=== PATIENT | female | born 1995 | race Caucasian/White ===

== ENCOUNTER → 2018-03-15 | Outpatient (CLI) | payer OTHER ==
[2018-03-15 11:29] LABS: BASO % 0.2 % (0.0-1.0); EOS % 0.4 % (0.0-3.0); HEMATOCRIT 38.2 % (36.0-47.0); HEMOGLOBIN 13.2 g/dl (12.0-15.5); IMMATURE GRANULOCYTE % 0.4 % (0-3.0); LYMPH # 3.1 10^3/uL (1.5-6.5); LYMPH % 27.1 % (24.0-44.0); MEAN CORPUSCULAR HEMOGLOBIN 30.2 pg (27.0-33.0); MEAN CORPUSCULAR HGB CONC 34.6 g/dl (32.0-36.5); MEAN CORPUSCULAR VOLUME 87.4 fl (80.0-96.0); MONO # 0.7 10^3/uL (0.0-0.8); MONO % 6.3 % (0.0-5.0); NEUTROPHILS # 7.5 10^3/uL (1.8-7.7); NEUTROPHILS % 65.6 % (36.0-66.0); PLATELET COUNT, AUTOMATED 282 10^3/uL (150-450); RED BLOOD COUNT 4.37 10^6/uL (4.00-5.40); RED CELL DISTRIBUTION WIDTH 13.2 % (11.5-14.5); WHITE BLOOD COUNT 11.4 10^3/uL (4.0-10.0)
[2018-03-15 12:10] LABS: ANION GAP 8 MEQ/L (8-16); BLOOD UREA NITROGEN 13 MG/DL (7-18); CALCIUM LEVEL 8.8 MG/DL (8.5-10.1); CARBON DIOXIDE LEVEL 26 MEQ/L (21-32); CHLORIDE LEVEL 106 MEQ/L (98-107); CREATININE FOR GFR 0.68 MG/DL (0.55-1.30); GLOMERULAR FILTRATION RATE > 60.0 (>60); GLUCOSE, FASTING 75 MG/DL (70-100); POTASSIUM SERUM 4.1 MEQ/L (3.5-5.1); SODIUM LEVEL 140 MEQ/L (136-145)
== END ==
LOC: M LRY 09:37
DX: R53.83 Other fatigue (principal); M54.2 Cervicalgia
CPT/HCPCS: 84443

== ENCOUNTER → 2018-03-28 | Outpatient (CLI) | payer OTHER ==
--- NOTE | 2018-03-28 12:47 | REP ---
Clinical: Lower back pain. Technique: AP, lateral, coned-down views of the lumbosacral spine. Findings: Alignment and lordosis maintained. Vertebral bodies and disc spaces are normal. Impression: Normal lumbosacral spine series. Electronically Signed by Floyd Coronado MD 03/28/2018 12:38 P
== END ==
LOC: M LRY 11:51
PROVIDERS: ATTEND Physician Assistant
DX: M54.5 Low back pain (principal)

== ENCOUNTER → 2018-07-14 | Outpatient (REF) | payer OTHER ==
[2018-07-14 20:54] LABS: CHLAMYDIA DNA AMPLIFICATION NEGATIVE (NEGATIVE); GC DNA AMPLIFICATION NEGATIVE (NEGATIVE)
== END ==
LOC: M SFHCLERA 12:07
PROVIDERS: ATTEND Nurse Practitioner Family
DX: R39.9 Unspecified symptoms and signs involving the genitourinary system (principal)

== ENCOUNTER → 2018-08-30 | Outpatient (CLI) | payer OTHER ==
[2018-08-30 11:33] LABS: BASO % 0.1 % (0.0-1.0); EOS # 0.1 10^3/uL (0.0-0.50); EOS % 0.8 % (0.0-3.0); HEMATOCRIT 39.7 % (36.0-47.0); LYMPH # 2.9 10^3/uL (1.5-6.5); LYMPH % 39.7 % (24.0-44.0); MEAN CORPUSCULAR HEMOGLOBIN 29.5 pg (27.0-33.0); MEAN CORPUSCULAR HGB CONC 32.7 g/dl (32.0-36.5); MONO # 0.6 10^3/uL (0.0-0.8); MONO % 8.6 % (0.0-5.0); NEUTROPHILS # 3.6 10^3/uL (1.8-7.7); NEUTROPHILS % 50.5 % (36.0-66.0); PLATELET COUNT, AUTOMATED 262 10^3/uL (150-450); RED BLOOD COUNT 4.41 10^6/uL (4.00-5.40); WHITE BLOOD COUNT 7.2 10^3/uL (4.0-10.0)
[2018-08-30 11:47] LABS: ALBUMIN 3.9 GM/DL (3.2-5.2); ALT/SGPT 36 U/L (12-78); BILIRUBIN,TOTAL 0.6 MG/DL (0.2-1.0); BLOOD UREA NITROGEN 16 MG/DL (7-18); CALCIUM LEVEL 9.1 MG/DL (8.5-10.1); CARBON DIOXIDE LEVEL 25 MEQ/L (21-32); CHLORIDE LEVEL 110 MEQ/L (98-107); CHOLESTEROL LEVEL 205 MG/DL (<200); CREATININE FOR GFR 0.81 MG/DL (0.55-1.30); FERRITIN 33 NG/ML (8-252); FREE T4 1.13 NG/DL (0.76-1.46); GLOMERULAR FILTRATION RATE > 60.0 (>60); GLUCOSE, FASTING 78 MG/DL (70-100); HDL CHOLESTEROL 48 MG/DL (>40); IRON (FE) 125 UG/DL (50-170); LDL CHOLESTEROL 134 MG/DL (<100); NON-HDL-C 157 MG/DL; PERCENT SATURATION 37.8 % (13.2-45.0); POTASSIUM SERUM 4.1 MEQ/L (3.5-5.1); SODIUM LEVEL 143 MEQ/L (136-145); TOTAL IRON BINDING CAPACITY 331 UG/DL (250-450); TRIGLYCERIDES LEVEL 113 MG/DL (<150)
== END ==
LOC: M LRY 07:55
PROVIDERS: ATTEND Physician Assistant
DX: Z13.29 Encounter for screening for other suspected endocrine disorder (principal)

== ENCOUNTER → 2018-11-17 | Outpatient (CLI) | payer OTHER ==
--- NOTE | 2018-11-18 11:50 | REP ---
RIGHT HAND COMPLETE: 11/17/2018 CLINICAL HISTORY: Trauma, patient fell. FINDINGS: Distal radius and ulna, metacarpals, carpal bones, and phalanges are without visible or displaced fracture. No abnormal soft tissue swelling or avulsion. IMPRESSION: 1. Negative right hand series for fracture or other acute bony finding. Electronically Signed by Jerry Peres MD 11/18/2018 12:16 P
== END ==
LOC: M LRY 17:40
PROVIDERS: ATTEND Physician Assistant
DX: S69.91XA Unspecified injury of right wrist, hand and finger(s), initial encounter (principal)

== ENCOUNTER → 2019-02-28 | Outpatient (CLI) | payer OTHER ==
[2019-02-28 15:17] LABS: ALBUMIN 3.5 GM/DL (3.2-5.2); ALT/SGPT 14 U/L (12-78); BLOOD UREA NITROGEN 15 MG/DL (7-18); CALCIUM LEVEL 8.7 MG/DL (8.5-10.1); CARBON DIOXIDE LEVEL 29 MEQ/L (21-32); CHLORIDE LEVEL 107 MEQ/L (98-107); CHOLESTEROL LEVEL 214 MG/DL (<200); CHOLESTEROL RISK RATIO 4.458 (<5); CREATININE FOR GFR 0.82 MG/DL (0.55-1.30); GLOMERULAR FILTRATION RATE > 60.0 (>60); GLUCOSE, FASTING 78 MG/DL (70-100); HDL CHOLESTEROL 48 MG/DL (>40); LDL CHOLESTEROL 145 MG/DL (<100); NON-HDL-C 166 MG/DL; POTASSIUM SERUM 4.6 MEQ/L (3.5-5.1); SODIUM LEVEL 140 MEQ/L (136-145); TOTAL PROTEIN 6.6 GM/DL (6.4-8.2); TRIGLYCERIDES LEVEL 105 MG/DL (<150)
== END ==
LOC: M LRY 08:59
PROVIDERS: ATTEND Physician Assistant
DX: E78.00 Pure hypercholesterolemia, unspecified (principal)

== ENCOUNTER → 2019-03-16 | Outpatient (CLI) | payer OTHER ==
[2019-03-16 19:43] LABS: BASO % 0.3 % (0.0-1.0); EOS # 0.1 10^3/uL (0.0-0.5); EOS % 0.4 % (0.0-3.0); HEMATOCRIT 37.9 % (36.0-47.0); HEMOGLOBIN 12.4 g/dl (12.0-15.5); LYMPH # 3.6 10^3/uL (1.5-5.0); LYMPH % 30.3 % (24.0-44.0); MEAN CORPUSCULAR HEMOGLOBIN 29.5 pg (27.0-33.0); MEAN CORPUSCULAR HGB CONC 32.7 g/dl (32.0-36.5); MONO # 0.6 10^3/uL (0.0-0.8); MONO % 4.8 % (0.0-5.0); NEUTROPHILS # 7.6 10^3/uL (1.5-8.5); NEUTROPHILS % 63.9 % (36.0-66.0); PLATELET COUNT, AUTOMATED 246 10^3/uL (150-450); RED BLOOD COUNT 4.21 10^6/uL (4.00-5.40)
[2019-03-16 19:58] LABS: PERCENT SATURATION 27.1 % (13.2-45.0)
== END ==
LOC: M LRY 15:36
PROVIDERS: ATTEND Nurse Practitioner Family
DX: R53.83 Other fatigue (principal)

== ENCOUNTER → 2021-01-28 | Outpatient (CLI) | payer OTHER | LOC: M PLALAB 09:05 | PROVIDERS: ATTEND Specialist | DX: N92.6 Irregular menstruation, unspecified (principal) ==

== ENCOUNTER → 2021-01-30 | Outpatient (CLI) | payer OTHER | LOC: M LAB 10:12 | PROVIDERS: ATTEND Specialist | DX: N92.6 Irregular menstruation, unspecified (principal) ==

== ENCOUNTER → 2022-01-04 | Outpatient (CLI) | payer MEDICAID | LOC: M WHC 13:56 | PROVIDERS: ATTEND Obstetrics & Gynecology | DX: O30.042 Twin pregnancy, dichorionic/diamniotic, second trimester (principal); Z3A.19 19 weeks gestation of pregnancy ==

== ENCOUNTER → 2022-02-01 | Outpatient (CLI) | payer MEDICAID, OTHER | LOC: M WHC 13:39 | PROVIDERS: ATTEND Obstetrics & Gynecology | DX: O30.042 Twin pregnancy, dichorionic/diamniotic, second trimester (principal); Z3A.23 23 weeks gestation of pregnancy ==

== ENCOUNTER 2022-03-03 15:11 | Outpatient (CLI) | payer OTHER ==
[~2022-03-03] VITALS: Ht 162.6 cm; Wt 117.3 kg
[2022-03-03] MEDS ORDERED: PRENTAB9 PO ×2 (15:37)
[2022-03-03] MEDS ORDERED: BETAMETHASONE SOLUSPAN 6MG/ML 5ML VIAL (J0702 PER 3MG) IM SCH (16:00)
[2022-03-03] MEDS ORDERED: PROM1SUP2 PR (16:01)
[2022-03-03] MEDS ORDERED: PROG200C22 PV (16:36)
[2022-03-03] MEDS ORDERED: TERC0.4C10 PV (16:36)
== END 2022-03-03 16:52 | disposition home or self-care (01) ==
LOC: M LDO 15:11
PROVIDERS: ATTEND Advanced Practice Midwife
DX: O23.592 Infection of other part of genital tract in pregnancy, second trimester (principal); B37.9 Candidiasis, unspecified; O26.872 Cervical shortening, second trimester; O30.042 Twin pregnancy, dichorionic/diamniotic, second trimester; Z3A.27 27 weeks gestation of pregnancy
CPT/HCPCS: 59025; J0702

== ENCOUNTER → 2022-03-03 | Outpatient (CLI) | payer OTHER ==
[~2022-03-03] MED LIST: PRENTAB9 PO; PROG200C22 PV; PROM1SUP2 PR; TERC0.4C10 PV
== END ==
LOC: M WHC 13:07
PROVIDERS: ATTEND Obstetrics & Gynecology
DX: O30.042 Twin pregnancy, dichorionic/diamniotic, second trimester (principal); Z3A.27 27 weeks gestation of pregnancy

== ENCOUNTER → 2022-03-03 | Outpatient (CLI) | payer OTHER ==
[2022-03-03 14:05] LABS: HEMATOCRIT 33.5 % (36.0-47.0); HEMOGLOBIN 11.2 g/dl (12.0-15.5); MEAN CORPUSCULAR HEMOGLOBIN 29.6 pg (27.0-33.0); MEAN CORPUSCULAR HGB CONC 33.4 g/dl (32.0-36.5); MEAN CORPUSCULAR VOLUME 88.4 fl (80.0-96.0); PLATELET COUNT, AUTOMATED 311 10^3/uL (150-450); RED BLOOD COUNT 3.79 10^6/uL (4.00-5.40); WHITE BLOOD COUNT 16.4 10^3/uL (4.0-10.0)
== END ==
LOC: M PLALAB 09:52
PROVIDERS: ATTEND Obstetrics & Gynecology
DX: O30.042 Twin pregnancy, dichorionic/diamniotic, second trimester (principal); Z3A.00 Weeks of gestation of pregnancy not specified

== ENCOUNTER 2022-03-04 16:07 | Outpatient (CLI) | payer OTHER ==
[~2022-03-04] VITALS: Ht 162.6 cm; Wt 117.2 kg
[2022-03-04 16:19] VITALS: BP 123/58
[2022-03-04] MEDS ORDERED: BETAMETHASONE SOLUSPAN 6MG/ML 5ML VIAL (J0702 PER 3MG) IM ONE (16:20)
[2022-03-04] MEDS ORDERED: HOME MED LIST COMPLETE! XX SCH (16:25)
== END 2022-03-04 16:38 | disposition home or self-care (01) ==
LOC: M LDO 16:07
PROVIDERS: ATTEND Obstetrics & Gynecology
DX: O26.872 Cervical shortening, second trimester (principal); O30.042 Twin pregnancy, dichorionic/diamniotic, second trimester; Z3A.37 37 weeks gestation of pregnancy
CPT/HCPCS: 96372; J0702

== ENCOUNTER → 2022-03-29 | Outpatient (CLI) | payer OTHER | LOC: M WHC 06:50 | PROVIDERS: ATTEND Obstetrics & Gynecology | DX: O30.043 Twin pregnancy, dichorionic/diamniotic, third trimester (principal) ==

== ENCOUNTER → 2022-04-28 | Outpatient (REF) | payer OTHER, MEDICAID ==
[~2022-04-28] MED LIST changes: +METF500T13 PO
== END ==
LOC: M SFHCWAGY 13:03
PROVIDERS: ATTEND Obstetrics & Gynecology
DX: Z34.93 Encounter for supervision of normal pregnancy, unspecified, third trimester (principal)

== ENCOUNTER → 2022-05-03 | Outpatient (CLI) | payer MEDICAID, OTHER | LOC: M LABSMTC 09:27 | PROVIDERS: ATTEND Anesthesiology | DX: Z20.828 Contact with and (suspected) exposure to other viral communicable diseases (principal); Z11.52 Encounter for screening for COVID-19 ==

== ENCOUNTER 2022-05-08 05:13 | Inpatient (IN) | payer OTHER ==
[2022-05-08] VITALS (7 sets, daily range): BP systolic 114–161; BP diastolic 57–77
[~2022-05-08] VITALS: Ht 162.6 cm; Wt 128.5 kg
[2022-05-08] MEDS ORDERED: ACET325C5 PO (05:46)
[2022-05-08] MEDS ORDERED: HOME MED LIST COMPLETE! XX SCH (05:50)
[2022-05-08] MEDS ORDERED: ceFAZolin SOD 2 GM in IV 1 EA IV ONE (06:15)
[2022-05-08] MEDS ORDERED: ceFAZolin SOD 1 GM in D5W MINI-BAG PLUS 50 ML IV ONE (06:15)
[2022-05-08] MEDS ORDERED: LR 1,000 ML IV ONE (06:20)
[2022-05-08] MEDS ORDERED: LR 1,000 ML IV SCH (06:20)
[2022-05-08] MEDS ORDERED: BICITRA 30ML SOLN UDC PO ONE (06:20)
[2022-05-08 06:29] LABS: HEMATOCRIT 34.8 % (36.0-47.0); HEMOGLOBIN 11.5 g/dl (12.0-15.5); MEAN CORPUSCULAR HEMOGLOBIN 26.8 pg (27.0-33.0); MEAN CORPUSCULAR VOLUME 81.1 fl (80.0-96.0); PLATELET COUNT, AUTOMATED 268 10^3/uL (150-450); RED BLOOD COUNT 4.29 10^6/uL (4.00-5.40); WHITE BLOOD COUNT 11.9 10^3/uL (4.0-10.0)
[2022-05-08] MEDS ORDERED: MORPHINE PRES-FREE INJ 10 MG/10 ML VIAL As Ordered ONE (08:35)
[2022-05-08] MEDS: DOCUSATE SODIUM 100MG CAPSULE PO SCH ×2 (09:00→20:26)
[2022-05-08] MEDS: PRENATAL VITAMINS CHEWABLE TABLET PO SCH (09:00)
[2022-05-08] MEDS ORDERED: ONDANSETRON 4MG 2ML VIAL As Ordered ONE ×2 (09:05→09:32)
[2022-05-08] MEDS ORDERED: METOCLOPRAMIDE INJ 10MG/2ML VIAL As Ordered ONE (09:20)
[2022-05-08] MEDS ORDERED: KETOROLAC 60MG 2ML VIAL As Ordered ONE (09:21)
[2022-05-08] MEDS ORDERED: PHENYLephrine 500MCG 5ML (100MCG/ML) SYRINGE As Ordered ONE (09:56)
[2022-05-08] MEDS ORDERED: ePHEDrine SULFATE 25 MG/5 ML(5MG/ML) SYRINGE As Ordered ONE (09:56)
[2022-05-08] MEDS ORDERED: ACETAMINOPHEN 500 MG TAB PO PRN (10:10)
[2022-05-08] MEDS ORDERED: METHYLERGONOVINE MALEATE 0.2MG/ML 1ML VIAL IM PRN (10:10)
[2022-05-08] MEDS ORDERED: OXYTOCIN DRIP 30 UNITS in IV 1 EA IV SCH (10:10)
[2022-05-08] MEDS ORDERED: ANUSOL HC CREAM 30GM TOP PRN (10:10)
[2022-05-08] MEDS ORDERED: ONDANSETRON 4MG 2ML VIAL IV PRN ×2 (10:10→10:35)
[2022-05-08] MEDS ORDERED: RHOGAM 300MCG (1500IU) INJ IM SCH (10:10)
[2022-05-08] MEDS ORDERED: MORPHINE 2 MG/ML 1ML VIAL IV PRN (10:10)
[2022-05-08] MEDS ORDERED: MEPERIDINE 25 MG/ML 1ML VIAL IV PRN (10:35)
[2022-05-08] MEDS ORDERED: fentaNYL 100 MCG/2 ML INJECTION IV PRN (10:35)
[2022-05-08] MEDS ORDERED: HYDROMORPHONE HCL 0.5 MG/ 0.5 ML SYRINGE IV PRN (10:35)
[2022-05-08] MEDS ORDERED: NALOXONE INJ 0.4MG/1ML VIAL IV PRN ×2 (10:35)
[2022-05-08] MEDS ORDERED: **NOTE PATIENT COMMENT** MISC XX SCH (10:35)
[2022-05-08] MEDS ORDERED: diphenhydrAMINE 50MG/ML VIAL IV PRN (10:35)
[2022-05-08] MEDS ORDERED: METOCLOPRAMIDE INJ 10MG/2ML VIAL IV PRN (10:35)
[2022-05-08] MEDS ORDERED: oxyCODONE 5MG TAB PO PRN (10:35)
[2022-05-08] MEDS ORDERED: OXYTOCIN 30UNITS IN 0.9% NaCl 500ML IV BAG As Ordered ONE (10:49)
[2022-05-08] MEDS ORDERED: PERCOCET PO (12:30)
[2022-05-08] MEDS ORDERED: COLA100C5 PO (12:30)
[2022-05-08] MEDS ORDERED: IBUP80TA PO (12:30)
[2022-05-08] MEDS: SLF 3 ML SYR IV SCH ×2 (14:00→21:45)
[2022-05-08] MEDS: KETOROLAC 30 MG/ML 1ML VIAL IV SCH ×2 (15:35→21:44)
[2022-05-08] MEDS: LR 1,000 ML IV SCH ×2 (15:36→19:17)
[2022-05-08] MEDS: ENOXAPARIN 40MG/0.4ML SYRINGE (J1650 PER 10MG) SC SCH (18:18)
[2022-05-09] VITALS (7 sets, daily range): BP systolic 110–126; BP diastolic 53–68
[2022-05-09] MEDS: PERCOCET 5MG/325MG TAB PO PRN ×5 (01:08→23:36)
[2022-05-09] MEDS: LR 1,000 ML IV SCH (02:10)
[2022-05-09] MEDS: KETOROLAC 30 MG/ML 1ML VIAL IV SCH (04:07)
[2022-05-09] MEDS: SLF 3 ML SYR IV SCH (06:00)
[2022-05-09 06:30] LABS: MEAN CORPUSCULAR HEMOGLOBIN 26.9 pg (27.0-33.0); MEAN CORPUSCULAR HGB CONC 32.1 g/dl (32.0-36.5); MEAN CORPUSCULAR VOLUME 83.8 fl (80.0-96.0); PLATELET COUNT, AUTOMATED 222 10^3/uL (150-450); RED BLOOD COUNT 3.34 10^6/uL (4.00-5.40); WHITE BLOOD COUNT 15.5 10^3/uL (4.0-10.0)
[2022-05-09] MEDS: PRENATAL VITAMINS CHEWABLE TABLET PO SCH (08:10)
[2022-05-09] MEDS: DOCUSATE SODIUM 100MG CAPSULE PO SCH ×2 (08:10→20:01)
[2022-05-09] MEDS: ENOXAPARIN 40MG/0.4ML SYRINGE (J1650 PER 10MG) SC SCH ×2 (08:12→21:20)
[2022-05-09] MEDS: IBUPROFEN 800 MG TAB PO SCH ×2 (12:12→20:01)
[2022-05-09 19:33] LABS: CREATININE FOR GFR 0.82 MG/DL (0.55-1.30); GLOMERULAR FILTRATION RATE > 60.0 (>60)
[2022-05-09] MEDS: SIMETHICONE 80MG CHEW TAB PO PRN (20:01)
[2022-05-10 02:00] VITALS: BP 123/69
[2022-05-10] MEDS: IBUPROFEN 800 MG TAB PO SCH ×3 (03:10→20:19)
[2022-05-10 05:37] VITALS: BP 125/63
[2022-05-10] MEDS: PERCOCET 5MG/325MG TAB PO PRN ×4 (06:26→20:19)
[2022-05-10] MEDS: PRENATAL VITAMINS CHEWABLE TABLET PO SCH (08:55)
[2022-05-10] MEDS: ENOXAPARIN 40MG/0.4ML SYRINGE (J1650 PER 10MG) SC SCH ×2 (08:55→20:18)
[2022-05-10] MEDS: DOCUSATE SODIUM 100MG CAPSULE PO SCH ×2 (08:55→20:18)
[2022-05-10] MEDS ORDERED: MEASLES,MUMPS,RUBELLA VACCINE INJ (MMR-II) SC.IMMUN ONE (09:00)
[2022-05-10 10:00] VITALS: BP 128/71
[2022-05-10 15:00] VITALS: BP 117/59
[2022-05-10] MEDS: SIMETHICONE 80MG CHEW TAB PO PRN (16:29)
[2022-05-10 18:00] VITALS: BP 136/74
[2022-05-11] MEDS: IBUPROFEN 800 MG TAB PO SCH ×3 (04:00→11:25)
[2022-05-11 05:45] VITALS: BP 139/72
[2022-05-11] MEDS: SIMETHICONE 80MG CHEW TAB PO PRN (06:10)
[2022-05-11] MEDS: PERCOCET 5MG/325MG TAB PO PRN ×2 (06:11→11:25)
[2022-05-11] MEDS: DOCUSATE SODIUM 100MG CAPSULE PO SCH (09:27)
[2022-05-11] MEDS: ENOXAPARIN 40MG/0.4ML SYRINGE (J1650 PER 10MG) SC SCH (09:28)
[2022-05-11] MEDS: PRENATAL VITAMINS CHEWABLE TABLET PO SCH (09:28)
== END 2022-05-11 12:30 | disposition home or self-care (01) | DRG 540 ==
LOC: M LDI 05:13 → M OBS 11:46
PROVIDERS: ADMIT Obstetrics & Gynecology; ATTEND Obstetrics & Gynecology
PROC: 0UB70ZZ Excision of Bilateral Fallopian Tubes, Open Approach (ICD-10-PCS; 2022-05-08)
PROC: 10D00Z1 Extraction of Products of Conception, Low, Open Approach (ICD-10-PCS; principal; 2022-05-08 07:30)
DX: O30.043 Twin pregnancy, dichorionic/diamniotic, third trimester (principal); Z37.2 Twins, both liveborn; O24.429 Gestational diabetes mellitus in childbirth, unspecified control; Z37.0 Single live birth; Z3A.39 39 weeks gestation of pregnancy; Z30.2 Encounter for sterilization

== ENCOUNTER 2022-05-30 18:48 | Emergency (ER) | payer OTHER, MEDICAID ==
[~2022-05-30] VITALS: Ht 162.6 cm; Wt 114.9 kg
[2022-05-30 18:48] VITALS: BP 136/64
[~2022-05-30 18:48] MED LIST changes: +ACET325C5 PO; +COLA100C5 PO; +IBUP80TA PO; +PERCOCET PO
[2022-05-30 19:26] LABS: BASO % 0.4 % (0.0-1.0); EOS # 0.3 10^3/uL (0.0-0.5); EOS % 3.2 % (0.0-3.0); HEMOGLOBIN 10.5 g/dl (12.0-15.5); LYMPH # 3.1 10^3/uL (1.5-5.0); LYMPH % 34.1 % (24.0-44.0); MEAN CORPUSCULAR HEMOGLOBIN 25.4 pg (27.0-33.0); MEAN CORPUSCULAR HGB CONC 30.9 g/dl (32.0-36.5); MEAN CORPUSCULAR VOLUME 82.3 fl (80.0-96.0); MONO # 0.8 10^3/uL (0.0-0.8); MONO % 8.4 % (2.0-8.0); NEUTROPHILS # 4.9 10^3/uL (1.5-8.5); NEUTROPHILS % 53.5 % (36.0-66.0); PLATELET COUNT, AUTOMATED 548 10^3/uL (150-450); RED BLOOD COUNT 4.13 10^6/uL (4.00-5.40); WHITE BLOOD COUNT 9.2 10^3/uL (4.0-10.0)
[2022-05-30 19:36] LABS: INR 0.91; PROTHROMBIN TIME 12.4 SECONDS (12.5-14.5)
[2022-05-30 19:37] LABS: PARTIAL THROMBOPLASTIN TIME 28.8 SECONDS (24.8-34.2)
[2022-05-30 19:59] LABS: LIPASE 68 U/L (12-53)
[2022-05-30 20:02] LABS: CPK CREATINE PHOSPHOKINASE 92 U/L (34-145)
[2022-05-30 20:05] LABS: ALBUMIN 3.4 G/DL (3.2-5.2); ALKALINE PHOSPHATASE 155 U/L (46-116); ALT/SGPT 21 U/L (7.0-40); AST/SGOT 18 U/L (<34); BILIRUBIN,DIRECT < 0.1 MG/DL (<0.4); BILIRUBIN,TOTAL 0.5 MG/DL (0.3-1.2); BLOOD UREA NITROGEN 19 MG/DL (9-23); CALCIUM LEVEL 9.4 MG/DL (8.5-10.1); CARBON DIOXIDE LEVEL 29 MMOL/L (20-31); CHLORIDE LEVEL 107 MMOL/L (98-107); CK-MB VALUE MASS 1.1 NG/ML (<3.6); CREATININE FOR GFR 0.76 MG/DL (0.55-1.30); FREE T4 1.26 NG/DL (0.89-1.76); GLOMERULAR FILTRATION RATE > 60.0 (>60); GLUCOSE, FASTING 76 MG/DL (60-100); MB/CK RELATIVE INDEX 1.19 (< OR =4); POTASSIUM SERUM 4.5 MMOL/L (3.5-5.1); SODIUM LEVEL 142 MMOL/L (136-145); THYROID STIMULATING HORMONE 0.419 uIU/ML (0.55-4.78); TOTAL PROTEIN 6.5 G/DL (5.7-8.2)
== END 2022-05-31 00:32 | disposition left against medical advice (07) ==
LOC: M ED 18:48
DX: Z53.21 Procedure and treatment not carried out due to patient leaving prior to being seen by health care provider (principal)

== ENCOUNTER 2022-05-31 10:42 | Emergency (ER) | payer MEDICAID, OTHER ==
[~2022-05-31] VITALS: Ht 162.6 cm; Wt 113.7 kg
[2022-05-31 13:03] LABS: BASO % 0.2 % (0.0-1.0); EOS # 0.2 10^3/uL (0.0-0.5); EOS % 2.9 % (0.0-3.0); HEMATOCRIT 35.8 % (36.0-47.0); HEMOGLOBIN 11.2 g/dl (12.0-15.5); LYMPH # 2.3 10^3/uL (1.5-5.0); LYMPH % 27.4 % (24.0-44.0); MEAN CORPUSCULAR HEMOGLOBIN 25.9 pg (27.0-33.0); MEAN CORPUSCULAR HGB CONC 31.3 g/dl (32.0-36.5); MEAN CORPUSCULAR VOLUME 82.9 fl (80.0-96.0); MONO # 0.5 10^3/uL (0.0-0.8); MONO % 6.3 % (2.0-8.0); NEUTROPHILS # 5.3 10^3/uL (1.5-8.5); NEUTROPHILS % 62.8 % (36.0-66.0); PLATELET COUNT, AUTOMATED 547 10^3/uL (150-450); RED BLOOD COUNT 4.32 10^6/uL (4.00-5.40); WHITE BLOOD COUNT 8.4 10^3/uL (4.0-10.0)
[2022-05-31 13:32] LABS: CK-MB VALUE MASS < 1.0 NG/ML (<3.6)
[2022-05-31 13:34] LABS: ALBUMIN 3.7 G/DL (3.2-5.2); ALKALINE PHOSPHATASE 146 U/L (46-116); ALT/SGPT 21 U/L (7.0-40); AST/SGOT 26 U/L (<34); BILIRUBIN,TOTAL 0.7 MG/DL (0.3-1.2); BLOOD UREA NITROGEN 16 MG/DL (9-23); CALCIUM LEVEL 8.8 MG/DL (8.5-10.1); CARBON DIOXIDE LEVEL 30 MMOL/L (20-31); CHLORIDE LEVEL 105 MMOL/L (98-107); GLOMERULAR FILTRATION RATE > 60.0 (>60); GLUCOSE, FASTING 90 MG/DL (60-100); POTASSIUM SERUM 4.6 MMOL/L (3.5-5.1); SODIUM LEVEL 142 MMOL/L (136-145); TOTAL PROTEIN 6.8 G/DL (5.7-8.2)
[2022-05-31 13:36] LABS: CPK CREATINE PHOSPHOKINASE 91 U/L (34-145); MB/CK RELATIVE INDEX 1.09 (< OR =4)
[2022-05-31] MEDS ORDERED: KETOROLAC 30 MG/ML 1ML VIAL IV ONE (14:35)
[2022-05-31] MEDS ORDERED: ISOVUE-370 76% 100ML VIAL As Ordered ONE (15:21)
[2022-05-31] MEDS ORDERED: FUROSEMIDE 40MG/4ML VIAL IV ONE (17:00)
[2022-05-31 17:33] VITALS: BP 125/61
== END 2022-05-31 17:44 | disposition home or self-care (01) ==
LOC: M ED 10:42
DX: R07.9 Chest pain, unspecified (principal); R22.43 Localized swelling, mass and lump, lower limb, bilateral; E11.9 Type 2 diabetes mellitus without complications; Z79.810 Long term (current) use of selective estrogen receptor modulators (SERMs); Z79.1 Long term (current) use of non-steroidal anti-inflammatories (NSAID); Z79.899 Other long term (current) drug therapy
CPT/HCPCS: 71045; 71275; 80053; 82550; 82553; 83880; 85025; 85379; 87428; 93005; 93970; 96374; 96375; 99284; J1885; J1940; Q9967

== ENCOUNTER → 2022-07-28 | Outpatient (CLI) | payer OTHER, MEDICAID ==
[2022-07-28 10:57] LABS: BASO % 0.2 % (0.0-1.0); EOS # 0.1 10^3/uL (0.0-0.5); EOS % 1.3 % (0.0-3.0); HEMATOCRIT 42.4 % (36.0-47.0); HEMOGLOBIN 13.2 g/dl (12.0-15.5); LYMPH # 2.3 10^3/uL (1.5-5.0); LYMPH % 27.2 % (24.0-44.0); MEAN CORPUSCULAR HEMOGLOBIN 25.8 pg (27.0-33.0); MEAN CORPUSCULAR HGB CONC 31.1 g/dl (32.0-36.5); MONO # 0.5 10^3/uL (0.0-0.8); MONO % 5.9 % (2.0-8.0); NEUTROPHILS # 5.4 10^3/uL (1.5-8.5); NEUTROPHILS % 64.9 % (36.0-66.0); PLATELET COUNT, AUTOMATED 407 10^3/uL (150-450); RED BLOOD COUNT 5.11 10^6/uL (4.00-5.40); WHITE BLOOD COUNT 8.3 10^3/uL (4.0-10.0)
[2022-07-28 11:24] LABS: ALBUMIN 3.5 G/DL (3.2-5.2); ALKALINE PHOSPHATASE 139 U/L (46-116); ALT/SGPT 23 U/L (7.0-40); AST/SGOT 12 U/L (<34); BILIRUBIN,TOTAL 0.5 MG/DL (0.3-1.2); BLOOD UREA NITROGEN 13 MG/DL (9-23); CALCIUM LEVEL 8.8 MG/DL (8.5-10.1); CARBON DIOXIDE LEVEL 30 MMOL/L (20-31); CHLORIDE LEVEL 107 MMOL/L (98-107); CREATININE FOR GFR 0.77 MG/DL (0.55-1.30); GLOMERULAR FILTRATION RATE > 60.0 (>60); GLUCOSE, FASTING 80 MG/DL (60-100); POTASSIUM SERUM 4.2 MMOL/L (3.5-5.1); SODIUM LEVEL 141 MMOL/L (136-145); TOTAL PROTEIN 6.8 G/DL (5.7-8.2)
[2022-07-28 11:25] LABS: FREE T4 0.88 NG/DL (0.89-1.76)
[2022-07-28 11:26] LABS: THYROID STIMULATING HORMONE 0.599 uIU/ML (0.55-4.78); TOTAL 25(OH) VITAMIN D 30.2 NG/ML (20.0-100.0)
== END ==
LOC: M PLALAB 07:19
PROVIDERS: ATTEND Physician Assistant
DX: Z13.29 Encounter for screening for other suspected endocrine disorder (principal)

== ENCOUNTER → 2023-08-24 | Outpatient (CLI) | payer OTHER ==
[~2023-08-24] MED LIST changes: -PROG200C22 PV; +PROG200C32 PV
== END ==
LOC: M PLAIMG 12:13
PROVIDERS: ATTEND Physician Assistant
DX: M25.532 Pain in left wrist (principal)

== ENCOUNTER → 2023-09-24 | Outpatient (CLI) | payer OTHER | LOC: M WUC 15:51 | PROVIDERS: ATTEND Student in an Organized Health Care Education/Training Program | DX: M25.531 Pain in right wrist (principal) ==

== ENCOUNTER → 2024-08-16 | Outpatient (CLI) | payer OTHER ==
[2024-08-16 10:37] LABS: BASO % 0.3 % (0.0-1.0); EOS # 0.1 10^3/uL (0.0-0.5); EOS % 1.2 % (0.0-3.0); HEMATOCRIT 41.6 % (36.0-47.0); HEMOGLOBIN 13.7 g/dl (12.0-15.5); LYMPH # 3.1 10^3/uL (1.5-5.0); LYMPH % 26.7 % (24.0-44.0); MEAN CORPUSCULAR HEMOGLOBIN 29.4 pg (27.0-33.0); MEAN CORPUSCULAR HGB CONC 32.9 g/dl (32.0-36.5); MEAN CORPUSCULAR VOLUME 89.3 fl (80.0-96.0); MONO # 0.7 10^3/uL (0.0-0.8); MONO % 5.7 % (2.0-8.0); NEUTROPHILS # 7.6 10^3/uL (1.5-8.5); NEUTROPHILS % 65.7 % (36.0-66.0); PLATELET COUNT, AUTOMATED 366 10^3/uL (150-450); RED BLOOD COUNT 4.66 10^6/uL (4.00-5.40); WHITE BLOOD COUNT 11.6 10^3/uL (4.0-10.0)
[2024-08-16 11:01] LABS: ALBUMIN 3.9 G/DL (3.2-5.2); ALKALINE PHOSPHATASE 117 U/L (35-104); ALT/SGPT 28 U/L (7.0-40); AST/SGOT 24 U/L (<34); BILIRUBIN,TOTAL 0.5 MG/DL (0.3-1.2); BLOOD UREA NITROGEN 12 MG/DL (9-23); CALCIUM LEVEL 9.1 MG/DL (8.5-10.1); CARBON DIOXIDE LEVEL 30 MMOL/L (20-31); CHLORIDE LEVEL 104 MMOL/L (98-107); CREATININE FOR GFR 0.85 MG/DL (0.55-1.30); GLOMERULAR FILTRATION RATE > 90.0 (>60); GLUCOSE, FASTING 75 MG/DL (60-100); POTASSIUM SERUM 4.5 MMOL/L (3.5-5.1); SODIUM LEVEL 143 MMOL/L (136-145); TOTAL PROTEIN 7.2 G/DL (5.7-8.2)
[2024-08-16 11:04] LABS: FREE T4 0.94 NG/DL (0.89-1.76); TESTOSTERONE 24 NG/DL (14-76); THYROID STIMULATING HORMONE 1.305 uIU/ML (0.55-4.78)
[2024-08-16 11:05] LABS: ESTRADIOL 39.5 PG/ML; FOLLICLE STIMULATING HORMONE 4.9 mIU/ML; LUTEINIZING HORMONE 1.2 mIU/ML; PROGESTERONE 0.48 NG/ML
[2024-08-16 11:07] LABS: HEMOGLOBIN A1c 4.9 % (4.0-6.0)
== END ==
LOC: M LAB 08:21
PROVIDERS: ATTEND Physician Assistant
DX: N92.6 Irregular menstruation, unspecified (principal); E66.9 Obesity, unspecified